=== PATIENT | female | born 1980 | race Two or more races ===

== ENCOUNTER 2022-04-28 16:33 | Emergency (ER) | payer BC, OTHER ==
[~2022-04-28] VITALS: Ht 165.1 cm; Wt 74.8 kg
[2022-04-28 16:49] VITALS: BP 157/93
[2022-04-28] MEDS ORDERED: ACETAMINOPHEN ES 500 MG TABLET PO ONE (17:00)
[2022-04-28] MEDS ORDERED: ONDANSETRON HCL/PF 4 MG/2 ML VIAL IVP ONE (17:00)
[2022-04-28] MEDS ORDERED: IV NS 0.9% 1,000 ML BAG IV ONE (17:00)
[2022-04-28] MEDS ORDERED: IBUP-1955 PO (17:58)
[2022-04-28] MEDS ORDERED: IBUPROFEN 600 MG TABLET ONE (18:03)
[2022-04-28] MEDS: IBUPROFEN 600 MG TABLET PO ONE (18:10)
--- NOTE | 2022-04-28 18:11 | NUR ---
NO acute changes/NO obvious distress Patient discharged to home in stable condition. Written and verbal after care instructions given. Patient verbalizes understanding of instruction.
== END 2022-04-28 18:12 | disposition home or self-care (01) ==
LOC: ER 16:56
DX: S06.0X0A Concussion without loss of consciousness, initial encounter (principal); R51.9 Headache, unspecified; Y08.89XA Assault by other specified means, initial encounter; Y93.89 Activity, other specified; Y92.89 Other specified places as the place of occurrence of the external cause; Y99.8 Other external cause status
CPT/HCPCS: 70450-TC; 72125-TC